=== PATIENT | male | born 1970 | race Caucasian/White ===

== ENCOUNTER 2017-07-08 17:58 | Emergency (ER) | payer OTHER ==
[2017-07-08 18:04] VITALS: BMI 23.8
[2017-07-08 18:06] VITALS: TEMP 98.7
--- NOTE | 2017-07-08 18:55 | ED PDOC ---
Arrival/HPI - General Chief Complaint: Upper Extremity Problem/Injury Time Seen by Provider: 07/08/17 18:42 Historian: Patient - History of Present Illness Narrative History of Present Illness (Text): 07/08/17 18:44 This 46 yo male presents to this ED c/o right wrist pain x 4 weeks ago. 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 Denies other complains. Time/Duration: Other (4 weeks) Quality: Aching Context: Work Past Medical History - Provider Review Nursing Documentation Reviewed: Yes - Infectious Disease Hx of Infectious Diseases: None - Psychiatric Hx Substance Use: No Family/Social History - Physician Review Nursing Documentation Reviewed: Yes Family/Social History: Other (non-contributory) Smoking Status: Never Smoked Hx Alcohol Use: No Hx Substance Use: No Allergies/Home Meds Allergies/Adverse Reactions: Allergies crab Allergy (Verified 07/08/17 18:31) ITCHING Review of Systems - Review of Systems Constitutional: Normal. absent: Fatigue, Weight Change, Fevers Eyes: Normal ENT: Normal Respiratory: Normal Cardiovascular: Normal Gastrointestinal: Normal Genitourinary Male: Normal Musculoskeletal: Other ((+) right wrist pain) Skin: Normal Neurological: Normal Endocrine: Normal Hemo/Lymphatic: Normal Psychiatric: Normal Physical Exam Vital Signs Temp Pulse Resp BP Pulse Ox 07/08/17 20:45 81 17 158/87 H 97 07/08/17 20:00 82 18 160/80 H 99 07/08/17 17:58 98.7 F 86 18 167/96 H 98 Temperature: Afebrile Blood Pressure: Hypertensive Pulse: Regular Respiratory Rate: Normal Appearance: Positive for: Well-Appearing, Non-Toxic, Comfortable Pain Distress: None Mental Status: Positive for: Alert and Oriented X 3 - Systems Exam Head: Present: Atraumatic, Normocephalic Pupils: Present: PERRL Extroacular Muscles: Present: EOMI Conjunctiva: Present: Normal Mouth: Present: Moist Mucous Membranes Neck: Present: Normal Range of Motion Upper Extremity: Present: Normal Inspection, Normal ROM, NORMAL PULSES, Neurovascularly Intact, Capillary Refill < 2s. No: Cyanosis, Edema, Tenderness , Swelling, Erythema Lower Extremity: Present: Normal Inspection, Normal ROM Neurological: Present: GCS=15, CN II-XII Intact, Speech Normal Skin: Present: Warm, Dry, Normal Color. No: Rashes Psychiatric: Present: Alert, Oriented x 3, Normal Insight Medical Decision Making ED Course and Treatment: 07/08/17 20:40 Re-evaluation. Patient feels better. Discussed results and plan with patient who expresses understanding. All questions answered and there is agreement with the plan to discharge home with instructions. Patient stable for discharge. Return if symptoms persist or worsen Patient was recommended to wear wrist splint, and NSAIDs for at least 5 days. And to f/u pmd in 1-2 days Re-evaluation Time: 20:40 Reassessment Condition: Re-examined, Improved - RAD Interpretation Narrative RAD Interpretations (Text): WRIST X-RAYS: no fracture Radiology Orders: 07/08/17 18:42 WRIST, RIGHT 3 VIEWS [RAD] Stat Disposition/Present on Arrival - Present on Arrival Any Indicators Present on Arrival: No History of DVT/PE: No History of Uncontrolled Diabetes: No Urinary Catheter: No History of Decub. Ulcer: No History Surgical Site Infection Following: None - Disposition Have Diagnosis and Disposition been Completed?: Yes Diagnosis: Wrist pain Disposition: HOME/ ROUTINE Disposition Time: 20:40 Patient Plan: Discharge Condition: GOOD Discharge Instructions (ExitCare): Arthralgia (ED), Wrist Sprain (ED) Additional Instructions: Call private doctor for follow up visit in 1-2 days. Call orthopedist for further evaluation and treatment. Take medication as instructed. Return to emergency if symptoms worsen. Prescriptions: Naproxen [Naprosyn Tab] 375 mg PO BID #[id number] tab Referrals: Sen Kovacs MD [Staff Provider] - Follow up with primary Forms: [employer] (Setswana), WORK NOTE
[2017-07-08 21:03] VITALS: BP 158/87; PULSE 81; RESP 17; O2SAT 97
--- NOTE | 2017-07-09 07:33 | RAD ---
PROCEDURE: Right Wrist Radiographs. HISTORY: pain COMPARISON: None. FINDINGS: BONES: Normal. No fracture. JOINTS: Normal. No dislocation. SOFT TISSUES: Normal. OTHER FINDINGS: None. IMPRESSION: Normal right wrist radiographs.
== END 2017-07-08 20:45 | disposition home or self-care (01) ==
LOC: ED 17:58
DX: M25.531 Pain in right wrist (principal)